=== PATIENT | female | born 1950 | race Caucasian/White ===

== ENCOUNTER → 2018-01-17 | Outpatient (CLI) | payer OTHER ==
--- NOTE | 2018-01-17 15:09 | KCIC ---
CT of the chest without comparison for cough, COPD, history of smoking. TECHNIQUE: Contiguous helical 5 mm axial images are obtained from the thoracic inlet to the base of the diaphragm. Sagittal and coronal reformations are evaluated. FINDINGS: There are mild changes of COPD at the lung apices.Within the medial aspect of the right middle lobe on axial image #39, there is a 4 mm nodular opacity which is too small to adequately characterize. No other lung nodules or masses are identified. No suspicious mediastinal, hilar, or axillary lymphadenopathy. No suspicious breast masses. Heart size within normal limits. Moderate atherosclerosis of the aortic arch is seen, with calcified atherosclerosis within the origin of the great vessels as well. Evaluation of the upper abdominal organs is limited by lack of IV contrast, however no gross morphologic abnormality of the visualized organs are identified. No significant osteoblastic or osteolytic bone lesions are seen. IMPRESSION: 1. Changes COPD. 2. 4 mm nodule in the right middle lobe. 6-12 month follow-up CT scan in accordance with Fleischner Society recommendations should be considered. 3. Atherosclerosis. Fleischner Society recommendations solid nodules(Radiology 2005; 237; 395-400): In a low risk patient: <4mm - No follow up required. >4-6mm- 12 month follow up, if unchanged, no further follow up. >6-8mm- 6-12 month follow up, then at 18-24 months if no change. >8mm- 3, 9, 24 month follow up or consideration of PET/CT. In a high risk patient (history of smoking or other known risk factors): <4mm - 12 month follow up, if unchanged then no further follow up. >4-6mm- 6-12 month follow up, then at 18-24 months if no change. >6-8mm- 3-6 month follow up, then at 9-12 months and 24 months if no change >8mm- Same as for low risk patient. Electronically signed by: Jose M Wild MD (01/17/2018 3:05 PM) [id number]
== END | disposition home or self-care (01) ==
LOC: KCIC CT 09:12
PROVIDERS: ATTEND Internal Medicine Pulmonary Disease
DX: J44.9 Chronic obstructive pulmonary disease, unspecified (principal); I70.0 Atherosclerosis of aorta; R91.1 Solitary pulmonary nodule; I10 Essential (primary) hypertension; Z87.891 Personal history of nicotine dependence; Z79.01 Long term (current) use of anticoagulants
CPT/HCPCS: 71250

== ENCOUNTER → 2018-08-01 | Outpatient (CLI) | payer BC, OTHER ==
--- NOTE | 2018-08-01 10:36 | KCIC ---
Examination: CT CHEST WO CONTRAST History: Pulmonary nodule Comparison/Correlation: 01/17/2018 CT chest without contrast Findings: Axial images of chest were obtained without contrast. Respiratory motion is noted multiple levels. Sagittal and coronal reformatted images were provided. Centrilobular emphysematous involvement of the lung queen of mild to moderate extent is noted. Within the right middle lobe anterior basilar aspect on axial image 134, there is again seen a 0.4 cm diameter nodule. It is somewhat greater in density as compared to the previous exam. Minimal linear scarring at the medial aspect of right middle lobe noted. Minimal scarring at the right lateral basilar aspect is evident and this is somewhat increased as well. No enlarged thoracic lymph nodes. No pleural or pericardial effusion. Mild pulmonary hyperinflation noted. Epigastric level ventral hernia defect the right of midline measuring 1.7 cm transverse is present with herniation of omental fat. Impression: Right middle lobe pulmonary nodule is similar in size compared previous exam measuring 0.4 cm diameter. It is of increased density. Increased right lower lobe anterolateral basilar pleural thickening noted. Interval follow-up in one year to assess stability is recommended. No new pulmonary nodule in the interval. Centrilobular emphysema. PQRS Compliance Statement: One or more of the following individualized dose reduction techniques were utilized for this examination: 1. Automated exposure control 2. Adjustment of the mA and/or kV according to patient size 3. Use of iterative reconstruction technique Electronically signed by: Geo Robert MD (08/01/2018 10:33 AM) [id number]
== END | disposition home or self-care (01) ==
LOC: KCIC CT 09:08
PROVIDERS: ATTEND Internal Medicine Pulmonary Disease
DX: J43.2 Centrilobular emphysema (principal); R91.1 Solitary pulmonary nodule; J98.4 Other disorders of lung; K43.9 Ventral hernia without obstruction or gangrene
CPT/HCPCS: 71250

== ENCOUNTER → 2019-01-29 | Outpatient (CLI) | payer BC ==
--- NOTE | 2019-01-30 12:40 | KCIC ---
EXAM: CT OF THE CHEST WITHOUT CONTRAST. HISTORY: Lung nodule follow-up. TECHNIQUE: Computed tomography of the chest was performed without intravenous contrast. COMPARISON: 08/01/2018. FINDINGS: Images of the upper abdomen reveal no acute abnormality. Bone windows reveal no suspicious lesions. There are no pathologically enlarged mediastinal or axillary lymph nodes. There is no pleural or pericardial effusion. The heart is not enlarged. There are atherosclerotic calcifications of the coronary arteries. An 8 mm nodule involving the anterior aspect of the right lower lobe on image 143 has increased from the prior study when it appeared starlike. It is mildly spiculated. A 4 mm nodule in the right lower lobe on image 117 is likely benign. The previously noted focus is no longer identified and was likely postinflammatory. There is mild to moderate centrilobular emphysema in the apices. Mild bronchial wall thickening is consistent with acute or chronic bronchitis. IMPRESSION: 1. An 8 mm nodule in the right lower lobe has increased. This is at the limits of resolution of PET. PET/CT or three-month follow-up is recommended. 2. Previously noted right lower lobe nodules have resolved or appear benign. 3. Mild to moderate centrilobular emphysema. Changes of acute or chronic bronchitis. *One or more of the following individualized dose reduction techniques were utilized for this examination: 1. Automated exposure control. 2. Adjustment of the mA and/or kV according to patient size. 3. Use of iterative reconstruction technique. Electronically signed by: Casey Fernandez MD (01/30/2019 12:37 PM) [id number]
== END | disposition home or self-care (01) ==
LOC: KCIC CT 14:16
PROVIDERS: ATTEND Internal Medicine Pulmonary Disease
DX: J43.2 Centrilobular emphysema (principal); R91.8 Other nonspecific abnormal finding of lung field; I25.10 Atherosclerotic heart disease of native coronary artery without angina pectoris
CPT/HCPCS: 71250

== ENCOUNTER 2019-02-26 06:56 | Outpatient (CLI) | payer BC ==
[2019-02-26] VITALS (8 sets, daily range): BP systolic 116–157; BP diastolic 57–71
[~2019-02-26] VITALS: Ht 144.8 cm; Wt 61.2 kg
[2019-02-26 07:27] LABS: BASO # 0.1 x10^3/uL (0.0-0.2); BASO % 2 % (0-3); EOS # 0.3 x10^3/uL (0.0-0.7); EOS % 5 % (0-3); HEMATOCRIT 41.1 % (36.0-47.0); LYMPH # 1.4 x10^3/uL (1.0-4.8); LYMPH % 26 % (24-48); MEAN CORPUSCULAR HEMOGLOBIN 30 pg (25-35); MEAN CORPUSCULAR HGB CONC 34 g/dL (31-37); MEAN CORPUSCULAR VOLUME 88 fL (79-100); MONO # 0.5 x10^3/uL (0.0-1.1); MONO % 9 % (0-9); NEUT # 3.2 x10^3/uL (1.8-7.7); NEUT % 58 % (31-73); PLATELET COUNT 235 x10^3/uL (140-400); RED BLOOD COUNT 4.68 x10^6/uL (3.50-5.40); RED CELL DISTRIBUTION WIDTH 13.4 % (11.5-14.5); WHITE BLOOD COUNT 5.6 x10^3/uL (4.0-11.0)
[2019-02-26] MEDS ORDERED: LOSA100T14 PO (07:27)
[2019-02-26] MEDS ORDERED: OMEG1CAP27 PO (07:27)
[2019-02-26] MEDS ORDERED: ASCO10002 PO (07:27)
[2019-02-26] MEDS ORDERED: ESCITALOPRAM OX20 MG PO (07:27)
[2019-02-26] MEDS ORDERED: CALC1CAP6 PO (07:27)
[2019-02-26] MEDS ORDERED: AMLO10TA8 PO (07:27)
[2019-02-26] MEDS ORDERED: CHOL400C2 PO (07:27)
[2019-02-26] MEDS ORDERED: UBID100C26 PO (07:27)
[2019-02-26] MEDS ORDERED: MULT-735 PO (07:27)
[2019-02-26] MEDS ORDERED: GLUC-11 PO (07:27)
[2019-02-26] MEDS ORDERED: HYDR50CA2 PO (07:27)
[2019-02-26] MEDS ORDERED: MAGN250T10 PO (07:27)
[2019-02-26] MEDS ORDERED: ACLI400A3 IH (07:27)
[2019-02-26 07:37] LABS: PROTHROMBIN TIME PATIENT 11.6 SEC (11.7-14.0)
[2019-02-26] MEDS ORDERED: LIDOCAINE WITH 8.4% SOD BICARB 3 ML DISP.SYRIN. ONE (07:55)
--- NOTE | 2019-02-26 08:04 | PDOC2 ---
INTERV RADIOLOGY CONSULT Date of Consult 02.26.19 Reason for Consult RLL pulmonary nodule. Biopsy requested Referring Physician Roel Identification/Chief Complaint RLL pulm nodue. 8 mm. interval growth over surveillance ct. Source Patient History of Present Illness Reason for Visit RLL pulm nodue. 8 mm. interval growth over surveillance ct. We discussed the risks and benefits of the procedure including possible challenges of biopsying a small lesion in the basilar lower lobe. We discussed complications including but not limited to failure to obtain adequate sample, pneumothorax and hemoptysis. Prior smoker. Works at [employer]. No recent illness. Past Medical History Cardiovascular: HTN Pulmonary: COPD GI: No pertinent hx Heme/Onc: No pertinent hx Hepatobiliary: No pertinent hx Psych: No pertinent hx Musculoskeletal: low back pain Rheumatologic: No pertinent hx Infectious disease: No pertinent hx ENT: No pertinent hx Renal/: No pertinent hx Endocrine: No pertinent hx Dermatology: No pertinent hx Current Medications Current Medications Lidocaine HCl (Buffered Lidocaine 1%) 3 ml STK-MED ONCE .ROUTE ; Start 02/26/19 at 07:55; Stop 02/26/19 at 07:55; Status DC Active Scripts Active Reported Vitamin D (Cholecalciferol (Vitamin D3)) 400 Unit Capsule 1 Cap PO DAILY 30 Days Hydroxyzine Pamoate 50 Mg Capsule 1 Cap PO HS Coq-10 (Ubidecarenone) 100 Mg Capsule 200 Mg PO DAILYWSUP Losartan Potassium 100 Mg Tablet 100 Mg PO DAILYWSUP Fish Oil 1,000 Mg Softgel ([place]-3 Fatty Acids/Fish Oil) 1 Each Capsule 2 Cap PO DAILYWSUP 30 Days WITH MEALS Magnesium (Magnesium Oxide) 250 Mg Tablet 1 Tab PO DAILYWSUP 30 Days Vitamin C (Ascorbic Acid) 1,000 Mg Tablet 1,000 Mg PO BID Cidaflex Tablet (Glucosamine Hcl/Chondr Carlton A Na) 1 Each Tablet 1 Tab PO BID 30 Days One-Daily Multi-Vitamin (Multivitamin) 1 Each Tablet 1 Tab PO DAILY 30 Days Escitalopram Oxalate 20 Mg Tablet 1 Tab PO DAILY Calcium 600 + Vit D Softgel (Calcium Carbonate/Vitamin D3) 1 Each Capsule 1 Cap PO BID 30 Days Tudorza Pressair (Aclidinium [place]) 400 Mcg Aer.pow.ba 1 Puff IH BID Amlodipine Besylate 10 Mg Tablet 10 Mg PO DAILY Allergies Coded Allergies: codeine (Verified Allergy, Unknown, 02/26/19) hallucinations and vomiting prednisone (Verified Allergy, Unknown, 02/26/19) Rapid heart rate, insomnia, crying. Physical Exam Cardiovascular rrr Chest cta Vitals Vital Signs Date Time Temp Pulse Resp B/P (MAP) Pulse Ox O2 Delivery O2 Flow Rate FiO2 02/26/19 07:50 96.0 75 16 137/58 (84) 97 Nasal Cannula 96.0 Labs Laboratory Tests Test 02/26/19 07:22 White Blood Count 5.6 x10^3/uL (4.0-11.0) Red Blood Count 4.68 x10^6/uL (3.50-5.40) Hemoglobin 14.0 g/dL (12.0-15.5) Hematocrit 41.1 % (36.0-47.0) Mean Corpuscular Volume 88 fL (79-100) Mean Corpuscular Hemoglobin 30 pg (25-35) Mean Corpuscular Hemoglobin Concent 34 g/dL (31-37) Red Cell Distribution Width 13.4 % (11.5-14.5) Platelet Count 235 x10^3/uL (140-400) Neutrophils (%) (Auto) 58 % (31-73) Lymphocytes (%) (Auto) 26 % (24-48) Monocytes (%) (Auto) 9 % (0-9) Eosinophils (%) (Auto) 5 % (0-3) Basophils (%) (Auto) 2 % (0-3) Neutrophils # (Auto) 3.2 x10^3/uL (1.8-7.7) Lymphocytes # (Auto) 1.4 x10^3/uL (1.0-4.8) Monocytes # (Auto) 0.5 x10^3/uL (0.0-1.1) Eosinophils # (Auto) 0.3 x10^3/uL (0.0-0.7) Basophils # (Auto) 0.1 x10^3/uL (0.0-0.2) Prothrombin Time 11.6 SEC (11.7-14.0) Prothromb Time International Ratio 0.9 (0.8-1.1) Laboratory Tests Test 02/26/19 07:22 White Blood Count 5.6 x10^3/uL (4.0-11.0) Red Blood Count 4.68 x10^6/uL (3.50-5.40) Hemoglobin 14.0 g/dL (12.0-15.5) Hematocrit 41.1 % (36.0-47.0) Mean Corpuscular Volume 88 fL (79-100) Mean Corpuscular Hemoglobin 30 pg (25-35) Mean Corpuscular Hemoglobin Concent 34 g/dL (31-37) Red Cell Distribution Width 13.4 % (11.5-14.5) Platelet Count 235 x10^3/uL (140-400) Neutrophils (%) (Auto) 58 % (31-73) Lymphocytes (%) (Auto) 26 % (24-48) Monocytes (%) (Auto) 9 % (0-9) Eosinophils (%) (Auto) 5 % (0-3) Basophils (%) (Auto) 2 % (0-3) Neutrophils # (Auto) 3.2 x10^3/uL (1.8-7.7) Lymphocytes # (Auto) 1.4 x10^3/uL (1.0-4.8) Monocytes # (Auto) 0.5 x10^3/uL (0.0-1.1) Eosinophils # (Auto) 0.3 x10^3/uL (0.0-0.7) Basophils # (Auto) 0.1 x10^3/uL (0.0-0.2) Prothrombin Time 11.6 SEC (11.7-14.0) Prothromb Time International Ratio 0.9 (0.8-1.1) Diagnostic Data/Imaging Laboratory Tests Test 02/26/19 07:22 White Blood Count 5.6 x10^3/uL Red Blood Count 4.68 x10^6/uL Hemoglobin 14.0 g/dL Hematocrit 41.1 % Mean Corpuscular Volume 88 fL Mean Corpuscular Hemoglobin 30 pg Mean Corpuscular Hemoglobin Concent 34 g/dL Red Cell Distribution Width 13.4 % Platelet Count 235 x10^3/uL Neutrophils (%) (Auto) 58 % Lymphocytes (%) (Auto) 26 % Monocytes (%) (Auto) 9 % Eosinophils (%) (Auto) 5 % Basophils (%) (Auto) 2 % Neutrophils # (Auto) 3.2 x10^3/uL Lymphocytes # (Auto) 1.4 x10^3/uL Monocytes # (Auto) 0.5 x10^3/uL Eosinophils # (Auto) 0.3 x10^3/uL Basophils # (Auto) 0.1 x10^3/uL Prothrombin Time 11.6 SEC Prothromb Time International Ratio 0.9 Current Medications Medications (Trade) Dose Ordered Sig/Anup Route PRN Reason Start Time Stop Time Status Last Admin Dose Admin Lidocaine HCl (Buffered Lidocaine 1%) 3 ml STK-MED ONCE .ROUTE 02/26/19 07:55 02/26/19 07:55 DC Assessment/Plan RLL nodule bx EDUIN MAN MD Feb 26, 2019 08:04
--- NOTE | 2019-02-26 08:04 | PDOC ---
MODERATE SEDATION ASSESSMENT RISKS/ALTERNATIVES Risks/Alternatives Risks and alternatives of this type of sedation and procedure discussed with: RISK/ALTERNATIVES: Patient H & P ON CHART H & P H & P on chart and reviewed for co-morbid conditions and appropriate labs. H&P ON CHART: Yes STATUS PREG STATUS ASSESSED: Yes MEDS/ALLERGIES REVIEWED Meds/Allergies Reviewed Medications and Allergies including time and route of recently administered narcotics and sedatives. MEDS/ALLERGIES REVIEWED: Yes ASA RATING ASA RATING: II AIRWAY ASSESSMENT Airway Assessment Airway patency, oral function limitations, presence of caps, crowns, dentures, partials, and ability to extend neck assessed. AIRWAY ASSESSMENT: Yes MALLAMPATI SCORE MALLAMPATI SCORE: II PRE-SEDATION ASSESSMENT PRE-SEDATION ASSESSMENT: Yes EDUIN MAN MD Feb 26, 2019 08:04
[2019-02-26] MEDS ORDERED: fentaNYL PF VIAL 100 MCG/2 ML VIAL ONE (08:40)
[2019-02-26] MEDS ORDERED: MIDAZOLAM HCL/PF 2 MG/2 ML VIAL. ONE (08:40)
[2019-02-26] MEDS ORDERED: LIDOCAINE WITH 8.4% SOD BICARB 3 ML DISP.SYRIN. IJ ONE (09:00)
[2019-02-26] MEDS ORDERED: MIDAZOLAM HCL/PF 2 MG/2 ML VIAL. IV ONE (09:00)
[2019-02-26] MEDS ORDERED: fentaNYL PF VIAL 100 MCG/2 ML VIAL IV ONE (09:00)
--- NOTE | 2019-02-26 10:31 | NUR ---
Discharge Note: MARY ANN DUNBAR Discharge instructions and discharge home medications reviewed with Patient and a copy given. All questions have been answered and understanding verbalized. The following instructions and handouts were given: no handouts Discontinued lines and drains: Peripheral IV intact. Patient discharged to Home or Self Care withFamily Membervia Wheelchair
--- NOTE | 2019-03-06 15:19 | RAD ---
Limited partial CT of the chest February 26, 2019 Discussion: Patient presented for lung biopsy, right lower lobe pulmonary nodule last seen on chest CT from January 29, 2019. CT imaging of the chest was obtained in preparation for biopsy however the previously seen right lower lung nodule appears to be slightly smaller than on most recent comparison study. Biopsy was therefore felt to be indicated. Continued CT surveillance recommended. Findings were discussed with the licensed electrician, later same day. Discussion: Apparent decreased size, right lower lobe pulmonary nodule with respect to most recent comparison study. No biopsy was performed. PQRS Compliance Statement: One or more of the following individualized dose reduction techniques were utilized for this examination: 1. Automated exposure control 2. Adjustment of the mA and/or kV according to patient size 3. Use of iterative reconstruction technique Views of the Chest 02/26/2019 8:36 AM
== END 2019-02-26 11:04 | disposition home or self-care (01) ==
LOC: INTRAD 06:56
PROVIDERS: ATTEND Internal Medicine Pulmonary Disease
DX: R91.8 Other nonspecific abnormal finding of lung field (principal); I10 Essential (primary) hypertension; J44.9 Chronic obstructive pulmonary disease, unspecified; Z88.5 Allergy status to narcotic agent; Z79.899 Other long term (current) drug therapy; Z88.8 Allergy status to other drugs, medicaments and biological substances; Z79.01 Long term (current) use of anticoagulants
CPT/HCPCS: 32405; 36415; 85025; 85610; 99152; J2250; J3010

== ENCOUNTER → 2019-08-20 | Outpatient (CLI) | payer BC ==
[2019-02-26 10:15] VITALS: BP 116/58
[~2019-08-20] MED LIST: ACLI400A3 IH; AMLO10TA8 PO; ASCO10002 PO; CALC1CAP6 PO; CHOL400C2 PO; ESCITALOPRAM OX20 MG PO; GLUC-11 PO; HYDR50CA2 PO; LOSA100T14 PO; MAGN250T10 PO; MULT-735 PO; OMEG1CAP27 PO; UBID100C26 PO
--- NOTE | 2019-08-20 12:36 | CARD ---
MR#: [id number] Date of Study: 08/20/2019 Ordering Physician: LATASHA SWANN, Referring Physician: LATASHA SWANN, Tech: Nadine Lovell APPROVED REPORT EXAM: Two-dimensional and M-mode echocardiogram with Doppler and color Doppler. Other Information Quality : AverageHR: 63bpm INDICATION Dyspnea RISK FACTORS Hypertension Hyperlipidemia 2D DIMENSIONS RVDd2.3 (2.9-3.5cm)Left Atrium(2D)3.0 (1.6-4.0cm) IVSd1.1 (0.7-1.1cm)Aortic Root(2D)2.8 (2.0-3.7cm) LVDd4.2 (3.9-5.9cm)LVOT Diameter1.9 (1.8-2.4cm) PWd1.0 (0.7-1.1cm)LVDs2.8 (2.5-4.0cm) FS (%) 34.0 %SV50.6 ml Aortic Valve AoV Peak Milind.156.2cm/sAoV VTI30.9cm AO Peak GR.9.8mmHgLVOT Peak Milind.113.4cm/s LVOT VTI 24.66cmAO Mean GR.5mmHg RAY (VMAX)1.83fr0[facility] (VTI)2.30cm2 Mitral Valve MV E Mhesxbkz24.2cm/sMV DECEL [id number] MV A Kljvsxdj95.9cm/sMV HEA48np E/A Ratio0.9MVA (PHT)3.03cm2 TDI E/Lateral E'12.6E/Medial E'11.2 Pulmonary Valve PV Peak Jmapjfbe81.3cm/sPV Peak Grad.4mmHg Tricuspid Valve TR P. Owddxetg551db/sRAP WVCNNAMK2dqWq TR Peak Gr.00jzGyJSVJ59cgUk Pulmonary Vein S1 Vrmkruvk22.2cm/sD2 Zyqnfijz91.3cm/s PVa [id number] LEFT VENTRICLE The left ventricle is normal size. There is borderline concentric left ventricular hypertrophy. The l eft ventricular systolic function is normal and the ejection fraction is within normal range. The Eje ction Fraction is 55-60%. There is normal LV segmental wall motion. Transmitral Doppler flow pattern is Grade I-abnormal relaxation pattern. RIGHT VENTRICLE The right ventricle is normal size. There is normal right ventricular wall thickness. The right ventr icular systolic function is normal. ATRIA The left atrium size is normal. The right atrium size is normal. The interatrial septum is intact wit h no evidence for an atrial septal defect or patent foramen ovale as noted on 2-D or Doppler imaging. AORTIC VALVE The aortic valve is normal in structure and function. Doppler and Color Flow revealed no significant aortic regurgitation. There is no significant aortic valvular stenosis. MITRAL VALVE The mitral valve is normal in structure and function. There is no evidence of mitral valve prolapse. There is no mitral valve stenosis. Doppler and Color-flow revealed trace mitral regurgitation. TRICUSPID VALVE The tricuspid valve is normal in structure and function. Doppler and Color Flow revealed mild tricusp id regurgitation with an estimated PAP of 40 mmHg. There is no tricuspid valve stenosis. PULMONIC VALVE The pulmonic valve is not well visualized. Doppler and Color Flow revealed no pulmonic valvular regur gitation. GREAT VESSELS The aortic root is normal in size. The ascending aorta is normal in size. The IVC is normal in size a nd collapses >50% with inspiration. PERICARDIAL EFFUSION There is no evidence of significant pericardial effusion. Critical Notification Critical Value: No <Conclusion> The left ventricle is normal size. The left ventricular systolic function is normal and the ejection fraction is within normal range. The Ejection Fraction is 55-60%. There is borderline concentric left ventricular hypertrophy. Doppler and Color Flow revealed no significant aortic regurgitation. There is no significant aortic valvular stenosis. Doppler and Color-flow revealed trace mitral regurgitation. Doppler and Color Flow revealed mild tricuspid regurgitation with an estimated PAP of 40 mmHg. Signed by : Latasha Swann MD Electronically Approved : 08/20/2019 12:35:24
== END | disposition home or self-care (01) ==
LOC: ECHO 11:02
PROVIDERS: ATTEND Internal Medicine Cardiovascular Disease
DX: I36.1 Nonrheumatic tricuspid (valve) insufficiency (principal); I11.9 Hypertensive heart disease without heart failure
CPT/HCPCS: 93306

== ENCOUNTER → 2019-09-07 | Outpatient (CLI) | payer BC ==
[2019-02-26 10:15] VITALS: BP 116/58
--- NOTE | 2019-09-07 17:20 | KCIC ---
EXAM: CT Chest without IV contrast INDICATION: Reason: FOLLOW UP LUNG NODULE / Spl. Instructions: / History: TECHNIQUE: Multi-detector row CT images were acquired from the thoracic inlet through the upper abdomen without the use of IV contrast. Sagittal and coronal images were acquired from the transaxial data. All CT scans performed at this facility utilize dose optimization techniques as appropriate to the exam, including the following: Automated exposure control and adjustment of the mA and/or KV according to patient size (this includes techniques or standardized protocols for targeted exams where dose is indication/reason for exam). COMPARISON: CT chest without IV contrast 01/29/2019 FINDINGS: The absence of IV contrast limits evaluation of soft tissue pathology. CARDIOVASCULAR: Unremarkable MEDIASTINUM & GALILEA: No adenopathy or masses. LUNGS: Interval decrease in size of a spiculated anterior basal right lower lobe pulmonary nodule abutting the major fissure, now measuring 7 x 4 x 10 mm (AP by transverse by craniocaudal (images 141 of 201 on axial series 6 and image 26 of 75 on coronal series 4), compared with 8 x 8 x 10 mm previously (images 143 of 194 on axial series 6 and image 15 of 69 on series 4 on the prior exam ). A 3 mm nodule in the right middle lobe (image 123 of axial series 6) is unchanged allowing for minimal respiratory motion artifact on the previous examination. There is adjacent subsegmental atelectatic change in the medial segment right middle lobe as well as confidently in the lingula, both of which are also unchanged. Mild centrilobular pattern emphysema remains present. PLEURAL SPACE: No pleural effusions or pneumothorax. OSSEOUS & SOFT TISSUE: Unremarkable ABDOMEN: The visualized portions of the upper abdomen are unremarkable. IMPRESSION: 1. Mild centrilobular emphysema with interval decrease in size of the previously reported 8 mm right lower lobe pulmonary nodule, likely reflecting a resolving inflammatory nodule. 2. Stable 3 mm nodule in the right middle lobe. 3. Given the presence of centrilobular pattern emphysema, consider enrolling the patient in CT lung cancer screening if appropriate. Electronically signed by: Rigo Rosenthal MD (09/07/2019 5:18 PM) [id number]
== END ==
LOC: KCIC CT 12:59
PROVIDERS: ATTEND Internal Medicine Pulmonary Disease
DX: J43.2 Centrilobular emphysema (principal); R91.8 Other nonspecific abnormal finding of lung field
CPT/HCPCS: 71250

== ENCOUNTER → 2020-03-02 | Outpatient (CLI) | payer BC ==
[2019-02-26 10:15] VITALS: BP 116/58
[~2020-03-02] MED LIST changes: +AMLO-187 PO; -AMLO10TA8 PO; +ASCO100019 PO; -ASCO10002 PO
--- NOTE | 2020-03-02 14:46 | KCIC ---
EXAM: CT CHEST WITHOUT CONTRAST HISTORY: Lung nodule follow-up, COPD, past smoker 40 years. Quit 7 years ago. COMPARISON: CT chest 09/07/2019, 08/01/2018, and 01/17/2018 TECHNIQUE: Helical CT of the chest performed without contrast. Coronal and sagittal reformats were obtained. One or more of the following individualized dose reduction techniques were utilized for this examination: 1. Automated exposure control 2. Adjustment of the mA and/or kV according to patient size 3. Use of iterative reconstruction technique. FINDINGS: Thyroid gland and thoracic inlet: Normal. Heart and great vessels: The heart is normal in size. There are coronary artery calcifications. No pericardial effusion. Thoracic aorta is normal in caliber. Mild calcified aortic atherosclerosis. Mediastinum and verena: No lymphadenopathy. Lungs and pleura: There is mild centrilobular emphysema and mild airway wall thickening. The 6 mm inferior right middle lobe pulmonary nodule abutting the minor fissure is unchanged from 09/07/2019 but decreased from 08/01/2018 (image 22, series 6). Additional 6 mm right middle lobe pulmonary nodule abutting the mediastinum (image 134, series 6) and 3 mm subpleural nodule in the anterior right middle lobe unchanged from 01/17/2018 (image 131, series 6). A 8mm subpleural opacity in the posterior right upper lobe is unchanged from 01/17/2018. No new pulmonary nodule. No pleural effusion. Chest wall and axillae: No axillary lymphadenopathy. Visualized portion of breast tissue symmetric. Upper abdomen: Hepatic steatosis. There is a small fat-containing ventral hernia with new fat stranding in the hernia sac and in the omentum just deep to the hernia. Bones: No acute osseous abnormality. IMPRESSION: 1. Mild centrilobular emphysema. Unchanged pulmonary nodules since 09/07/2019. The dominant nodule in the inferior right middle lobe abutting the minor fissure has decreased since 08/01/2018. Additional pulmonary nodules in the right lung are unchanged from 01/17/2018. 2. Coronary artery calcifications. 3. Hepatic steatosis. 4. Fat-containing ventral hernia with new fat stranding in the hernia sac and in the omentum just deep to the hernia. Electronically signed by: Maisha Napier MD (03/02/2020 2:42 PM) [id number]
== END ==
LOC: KCIC CT 12:28
PROVIDERS: ATTEND Internal Medicine Pulmonary Disease
DX: J43.2 Centrilobular emphysema (principal); R91.1 Solitary pulmonary nodule; K76.0 Fatty (change of) liver, not elsewhere classified; K43.9 Ventral hernia without obstruction or gangrene; I25.10 Atherosclerotic heart disease of native coronary artery without angina pectoris; Z87.891 Personal history of nicotine dependence
CPT/HCPCS: 71250

== ENCOUNTER → 2020-09-27 | Outpatient (CLI) | payer BC ==
[2019-02-26 10:15] VITALS: BP 116/58
--- NOTE | 2020-09-27 15:26 | RAD ---
EXAMINATION: XR CHEST 2V CLINICAL HISTORY: Shortness of breath. History of emphysema EXAM DATE/TIME: 09/27/2020 2:10 PM COMPARISON: 12/28/2015 FINDINGS: Lines, Tubes, and Devices: None. Cardiomediastinal Silhouette: Normal heart size. Aortic atherosclerotic calcification. Lungs and Pleura: No evidence of focal airspace consolidation or pleural effusion. Pulmonary vasculat ure unremarkable. Bones and Soft Tissues: Degenerative changes of the thoracic spine. Old healed right rib fracture def ormity. IMPRESSION: No evidence of acute cardiopulmonary abnormality or significant interval change. Electronically signed by: Jem Akers DO (09/27/2020 3:24 PM) [facility]
== END ==
LOC: RAD 13:41
PROVIDERS: ATTEND Internal Medicine Pulmonary Disease
DX: R06.02 Shortness of breath (principal); I70.0 Atherosclerosis of aorta; M47.814 Spondylosis without myelopathy or radiculopathy, thoracic region
CPT/HCPCS: 71046

== ENCOUNTER → 2020-09-30 | Outpatient (CLI) | payer BC ==
[2019-02-26 10:15] VITALS: BP 116/58
--- NOTE | 2020-09-30 19:25 | CARD ---
MR#: [id number] Date of Study: 09/30/2020 Ordering Physician: LATASHA TALAMANTES, Referring Physician: LATASHA TALAMANTES, Tech: Layla Jaquez [facility] APPROVED REPORT EXAM: Two-dimensional and M-mode echocardiogram with Doppler and color Doppler. Other Information Quality : AverageHR: 74bpm Rhythm : NSRTechnically limited study due to body habitus. INDICATION COPD RISK FACTORS Obesity 2D DIMENSIONS RVDd2.7 (2.9-3.5cm)Left Atrium(2D)3.2 (1.6-4.0cm) IVSd1.1 (0.7-1.1cm)Aortic Root(2D)3.0 (2.0-3.7cm) LVDd3.8 (3.9-5.9cm)LVOT Diameter2.1 (1.8-2.4cm) PWd1.1 (0.7-1.1cm)LVDs1.9 (2.5-4.0cm) FS (%) 51.3 %SV52.5 ml LVEF(%)83.1 (>50%) Aortic Valve AoV Peak Milind.177.4cm/sAoV VTI34.7cm AO Peak GR.12.6mmHgLVOT Peak Milind.124.4cm/s AO Mean GR.7mmHgAVA (VMAX)2.38cm2 Mitral Valve MV E Aemmtesa222.5cm/sMV E Peak Gr.14mmHg MV DECEL [id number] A Ichvloim135.1cm/s MV E Mean Gr.6mmHgE/A Ratio1.0 Tricuspid Valve TR P. Mjiocdex683ky/sTR Peak Gr.38mmHg LEFT VENTRICLE The left ventricle is normal size. There is borderline concentric left ventricular hypertrophy. The l eft ventricular systolic function is normal and the ejection fraction is within normal range. Estimat ed ejection 60-65%. There is normal LV segmental wall motion. The left ventricular diastolic function and filling is normal for age. No left ventricle thrombus noted on this study. RIGHT VENTRICLE The right ventricle is normal size. There is normal right ventricular wall thickness. The right ventr icular systolic function is normal. ATRIA The left atrium size is normal. The right atrium size is normal. The interatrial septum is intact wit h no evidence for an atrial septal defect or patent foramen ovale as noted on 2-D or Doppler imaging. AORTIC VALVE The aortic valve is not well visualized. Doppler and Color Flow revealed no significant aortic regurg itation. There is no significant aortic valvular stenosis. MITRAL VALVE The mitral valve is normal in structure and function. There is no evidence of mitral valve prolapse. There is no mitral valve stenosis. Doppler and Color-flow revealed trace mitral regurgitation. TRICUSPID VALVE The tricuspid valve is normal in structure and function. Doppler and Color Flow revealed trace tricus pid regurgitation. Estimated PAP 40-45 mmHg. There is no tricuspid valve stenosis. PULMONIC VALVE Doppler and Color Flow revealed no pulmonic valvular regurgitation. There is no pulmonic valvular renetta nosis. GREAT VESSELS The aortic root is normal in size. The ascending aorta is normal in size. The IVC is normal in size a nd collapses >50% with inspiration. PERICARDIAL EFFUSION There is no evidence of significant pericardial effusion. Critical Notification Critical Value: No <Conclusion> The left ventricular systolic function is normal and the ejection fraction is within normal range. E stimated ejection 60-65%. There is normal LV segmental wall motion. Doppler and Color Flow revealed trace tricuspid regurgitation. Estimated PAP 40-45 mmHg. Signed by : Junito Jamil, Electronically Approved : 09/30/2020 19:24:31
== END ==
LOC: ECHO 13:46
PROVIDERS: ATTEND Internal Medicine Cardiovascular Disease
DX: I51.7 Cardiomegaly (principal); R06.02 Shortness of breath
CPT/HCPCS: 93306; C8929

== ENCOUNTER → 2021-08-04 | Outpatient (CLI) | payer BC ==
[2019-02-26 10:15] VITALS: BP 116/58
[~2021-08-04] MED LIST changes: +ACLI400A2 IH; -ACLI400A3 IH; +REGADENOSON 0.4 MG/5 ML DISP.SYRIN. IV ONE
--- NOTE | 2021-08-06 16:16 | CARD ---
MR#: [id number] Date of Study: 08/04/2021 Ordering Physician: SAMAN MARTIN, Referring Physician: SAMAN MARTIN, Tech: APPROVED REPORT EXAM: Two-dimensional and M-mode echocardiogram with Doppler and color Doppler. INDICATION Dyspnea RISK FACTORS Obesity Hyperlipidemia Diabetes 2D DIMENSIONS RVDd3.1 (2.9-3.5cm)Left Atrium(2D)2.9 (1.6-4.0cm) IVSd0.8 (0.7-1.1cm)Aortic Root(2D)2.7 (2.0-3.7cm) LVDd3.6 (3.9-5.9cm)LVOT Diameter1.7 (1.8-2.4cm) PWd0.9 (0.7-1.1cm)LVDs2.4 (2.5-4.0cm) FS (%) 33.5 %SV34.7 ml LVEF(%)63.2 (>50%) Aortic Valve AoV Peak Milind.166.8cm/sAoV VTI37.7cm AO Peak GR.11.1mmHgLVOT Peak Milind.141.7cm/s AO Mean GR.5mmHgAVA (VMAX)1.92cm2 Mitral Valve MV E Cqutiruu623.4cm/sMV DECEL QOKY987am MV A Jimiyhhu682.8cm/sE/A Ratio1.0 Pulmonary Valve PV Peak Evmvvskk658.1cm/s Tricuspid Valve TR P. Gjrwlkha393bd/sTR Peak Gr.30mmHg LEFT VENTRICLE The left ventricle is normal size. There is normal left ventricular wall thickness. The left ventricu lar systolic function is normal and the ejection fraction is within normal range. Estimated ejection fraction 60%. There is normal LV segmental wall motion. Tissue Doppler imaging reveals mild left vent ricular diastolic dysfunction. RIGHT VENTRICLE The right ventricle is normal size. There is normal right ventricular wall thickness. ATRIA The left atrium size is normal. The right atrium size is normal. The interatrial septum is intact wit h no evidence for an atrial septal defect or patent foramen ovale as noted on 2-D or Doppler imaging. AORTIC VALVE The aortic valve is not well visualized. Doppler and Color Flow revealed no significant aortic regurg itation. There is no significant aortic valvular stenosis. MITRAL VALVE The mitral valve is normal in structure and function. There is no evidence of mitral valve prolapse. There is no mitral valve stenosis. Doppler and Color Flow revealed no mitral valve regurgitation note d. TRICUSPID VALVE The tricuspid valve is normal in structure and function. Doppler and Color Flow revealed trace tricus pid regurgitation. Estimated PAP 35-40 mmHg. There is no tricuspid valve stenosis. PULMONIC VALVE Doppler and Color Flow revealed no pulmonic valvular regurgitation. There is no pulmonic valvular renetta nosis. GREAT VESSELS The aortic root is normal in size. PERICARDIAL EFFUSION There is no evidence of significant pericardial effusion. Critical Notification Critical Value: No <Conclusion> The left ventricular systolic function is normal and the ejection fraction is within normal range. E stimated ejection fraction 60%. There is normal LV segmental wall motion. Technically difficult study. Signed by : Junito Jamil, Electronically Approved : 08/06/2021 16:16:19
--- NOTE | 2021-08-06 17:00 | RAD ---
MR#: [id number] Date of Study: 08/04/2021 Ordering Physician: LATASHA TALAMANTES, Referring Physician: JUJU LOW Tech: RT Lakeisha (R) (N) APPROVED REPORT Test Type: Pharmacological Stress Nurse/Tech: Glenna Mayorga RN Test Indications: Chest pressure Cardiac History: Hypertension, High cholesterol,COPD Medications: See Electronic Medical Record Medical History: See Electronic Medical Record Resting ECG: SR Resting Heart Rate: 67 bpm Resting Blood Pressure: 133/64mmHg Pretest Chest Pain: No chest pain Nurse/Tech Notes S1,S2 and lungs slightly diminished in the bases. Consent: The procedure was explained to the patient in lay terms. Informed consent was witnessed. Pito eout was entered into [employer]. History and Stress Test performed by AARON Almaraz, DOT (R) (N) Pharm. Details Pharmacologic stress testing was performed using 0.4mg per 5ml of regadenoson given intravenously ove r 7-10 seconds. Stress Symptoms Dyspnea POST EXERCISE Reason for Termination: Infusion complete Target HR: No Max HR: 91 bpm 63% of Maximum Predicted HR: 144 bpm Max Blood Pressure: 142/58mmHg Blood Pressure response to exercise: Normal blood pressure response during stress. Heart Rate response to exercise: WNL Chest Pain: No. Arrhythmia: No. ST Change: No. INTERPRETATION Stress EKG Conclusion: No evidence of stress induced EKG changes. Imaging Protocol IMAGE PROTOCOL: Rest Tc-99m/stress Tc-99m 1 day Rest: Stress: Viability: Radiopharm.Tc99m NbovteiiwVb01t Sestamibi Dose10.2mCi 30mCi Duration 13min. 13min. Img Date 08/04/2021 08/04/2021 Inj-Img Cmjt60ewg. 60min. Rest Admin Site:IV - Left AntecubitalAdministrator:AARON Almaraz ARRT (R)(N) Stress Admin Site: IV - Left AntecubitalAdministrator: AARON Almaraz ARRT (R)(N) STRESS DATA End Diast. Vol.45.0mlLVEDV index BSA25.0ml End Syst. Vol.5.0mlLVESV index BSA3.0ml Myocardial Mass84.0gEject. Mlzswjui51.0% Stress Scores Regional WT0.00Summed WT1.00 Regional WM0.00Summed WM0.00 The rest and stress images show normal perfusion, normal contraction and thickening. LV Perf. Quant 17 Seg. SSS0.00 17 Seg. SRS1.00 17 Seg. SDS0.00 Stress Defect Extent (% LAD)0.00Rest Defect Extent (% LAD)0.00Rev. Defect Extent (% LAD)0.00 Stress Defect Extent (% LCX) 0.00Rest Defect Extent (% LCX)0.00Rev. Defect Extent (% LCX)0.00 Stress Defect Extent (% RCA)0.00Rest Defect Extent (% RCA)0.00Rev. Defect Extent (% RCA)0.00 Stress Defect Extent (% MAHAMED)0.00Rest Defect Extent (% MAHAMED)0.00Rev. Defect Extent (% MAHAMED)0.00 Other Information Quality:Average Risk Assessment: Low Risk Conclusion 1. No evidence of EKG changes with stress testing. 2. Normal perfusion at stress/rest. 3. Low risk study. 4. EF > 60%. Signed by : Junito Jamil, Electronically Approved : 08/06/2021 16:59:23
== END ==
LOC: NM 08:54
PROVIDERS: ATTEND Internal Medicine Cardiovascular Disease
DX: R06.02 Shortness of breath (principal); R07.89 Other chest pain
CPT/HCPCS: 78452; 93017; 93306; A9500; J2785; C8929